=== PATIENT | female | born 1950 | race American Indian/Alaskan Native ===

== ENCOUNTER 2016-07-31 15:52 | Emergency (ER) | payer MEDICARE, OTHER ==
[2016-07-31 16:47] LABS: BUN/Creatinine Ratio 6.15; Calcium 9.4 mg/dL (8.4-10.2); Chloride 104.2 mmol/L (98-107)
[2016-07-31 16:54] LABS: Hematocrit 43.8 % (30.3-42.9); Hemoglobin 14.4 gm/dl (10.1-14.3); Mean Corpuscular HGB Conc 33 % (30-34); Mean Corpuscular Hemoglobin 29 pg (28-32); Mean Corpuscular Volume 88 fl (79-97); Platelet Count 176 K/mm3 (140-440); Red Blood Count 4.97 M/mm3 (3.65-5.03)
[2016-07-31 17:51] LABS: Blastocytes % (Manual) 0 %; Large Platelets Few; Platelet Estimate Cons; RBC Morphology Normal
[2016-07-31 17:52] LABS: Diff Status Complete
--- NOTE | 2016-07-31 18:13 | XRay Report ---
FINAL REPORT PROCEDURE: XR CHEST ROUTINE 2V TECHNIQUE: Two views of the chest are obtained. HISTORY: shortness of breath COMPARISON: No prior studies are available for comparison. FINDINGS: Calcification is seen of the aortic arch. Vague densities are seen in the upper lobes bilaterally, right greater than left. Bilateral pneumonia could possibly cause the appearance but findings may be due to scarring. Heart is normal in size. No pneumothorax or pleural effusion is seen. IMPRESSION: Mild abnormal densities in the upper lungs are of uncertain etiology. Mild pneumonia is not excluded but findings could be from scarring. Chest x-ray followup in a few days time may be useful.
[2016-07-31] MEDS ORDERED: DELTASONE PO ONE (19:03)
--- NOTE | 2016-07-31 19:06 | Emergency Department Report ---
ED Shortness of Breath HPI - General Chief Complaint: Dyspnea/Respdistress Stated Complaint: COUGH W/CHEST PAIN/FEVER/CHILLS/NAUSEA Source: patient Mode of arrival: Ambulatory Limitations: No Limitations - History of Present Illness Initial Comments: Patient is a 65-year-old female with history of hypertension and diet- controlled diabetes as well as lupus presenting today because of 3 days of subjective fevers and chills as well as nonproductive cough. Patient states that she is a former smoker and stopped smoking cigarettes 3-1/2 years ago. She 's had bronchitis in the past. She denies any chest pain other than during coughing. - Related Data Previous Rx's Medication Instructions Recorded Last Taken Type Levofloxacin [Levaquin TAB] 750 mg PO QDAY #5 tablet 07/31/16 Unknown Rx predniSONE [Deltasone] 50 mg PO QDAY #5 tab 07/31/16 Unknown Rx Allergies Allergy/AdvReac Type Severity Reaction Status Date / Time lisinopril Allergy Swelling Verified 07/31/16 16:03 naproxen [From Naprosyn] AdvReac DYSTONIC Verified 07/31/16 16:03 REACTIONS ED Review of Systems ROS: Stated complaint: COUGH W/CHEST PAIN/FEVER/CHILLS/NAUSEA Other details as noted in HPI Comment: All other systems reviewed and negative Constitutional: chills, fever Respiratory: cough, wheezing Cardiovascular: denies: palpitations Gastrointestinal: denies: nausea, vomiting Genitourinary: denies: dysuria Neurological: denies: headache Psychiatric: denies: anxiety ED Past Medical Hx - Past Medical History Hx Hypertension: Yes Hx Diabetes: Yes (DIET CONTROLLED) Hx GERD: Yes Additional medical history: LUPUS. INTERSTITIAL LUNG DISEASE - Surgical History Additional Surgical History: ANAL FISTULA SURGERY X 6. TONSILLECTOMY. TUBAL LIGATION - Social History Smoking Status: Former Smoker Substance Use Type: Marijuana, Prescribed - Medications Home Medications: Home Medications Medication Instructions Recorded Confirmed Last Taken Type Levofloxacin [Levaquin TAB] 750 mg PO QDAY #5 tablet 07/31/16 Unknown Rx predniSONE [Deltasone] 50 mg PO QDAY #5 tab 07/31/16 Unknown Rx ED Physical Exam - General Limitations: No Limitations General appearance: alert - Head Head exam: Present: atraumatic - ENT ENT exam: Present: normal exam - Respiratory Respiratory exam: Present: other (diffuse wheezing bilaterally but good air movement, no respiratory distress). Absent: respiratory distress, accessory muscle use - Cardiovascular Cardiovascular Exam: Present: regular rate, normal rhythm - GI/Abdominal GI/Abdominal exam: Present: soft. Absent: distended, tenderness - Neurological Exam Neurological exam: Present: alert, oriented X3 - Psychiatric Psychiatric exam: Present: normal affect - Skin Skin exam: Present: intact ED Course Vital Signs 07/31/16 07/31/16 07/31/16 16:06 18:05 19:45 Temperature 97.9 F Pulse Rate 65 60 64 Pulse Rate [ Right Lower Lobe] Respiratory 18 18 16 Rate Respiratory Rate [Right Lower Lobe] Blood Pressure 144/94 Blood Pressure 119/60 139/81 [Right] O2 Sat by Pulse 100 99 95 Oximetry 07/31/16 20:14 Temperature Pulse Rate Pulse Rate [ 84 Right Lower Lobe] Respiratory Rate Respiratory 18 Rate [Right Lower Lobe] Blood Pressure Blood Pressure [Right] O2 Sat by Pulse Oximetry ED Medical Decision Making - Lab Data Result diagrams: 07/31/16 16:17 07/31/16 16:17 - Medical Decision Making appears to be a bronchitis vs early pneumonia cxr shows possible mild pneumonia vs scarring per radiology labs unremarkable ekg shows nsr at rate of 64 without st-t changes and normal qtc of 433 duonebs and prednisone ordered Critical care attestation.: If time is entered above; I have spent that time in minutes in the direct care of this critically ill patient, excluding procedure time. ED Disposition Clinical Impression: Pneumonia Qualifiers: Pneumonia type: due to unspecified organism Laterality: unspecified laterality Lung location: unspecified part of lung Qualified Code(s): J18.9 - Pneumonia, unspecified organism Disposition: DISCHARGED TO HOME OR SELFCARE Is pt being admited?: No Condition: Stable Instructions: Bacterial Pneumonia (ED) Additional Instructions: Please follow-up with your primary care doctor in the next 3-5 days. Return to the emergency room if your symptoms significantly worsen or develop new symptoms. Prescriptions: Levofloxacin [Levaquin TAB] 750 mg PO QDAY #5 tablet predniSONE [Deltasone] 50 mg PO QDAY #5 tab Referrals: PRIMARY CARE, [Primary Care Provider] - 3-5 Days
[2016-07-31] MEDS ORDERED: DUONEB 0.5 MG-3 MG/3 ML SOLN IH ONE (19:43)
[2016-07-31 19:46] VITALS: BP 139/81
== END 2016-07-31 21:18 | disposition home or self-care (01) ==
LOC: ED 15:52
DX: R06.2 Wheezing (principal); I10 Essential (primary) hypertension; E11.9 Type 2 diabetes mellitus without complications; K21.9 Gastro-esophageal reflux disease without esophagitis; F12.10 Cannabis abuse, uncomplicated; Z87.891 Personal history of nicotine dependence; Z90.89 Acquired absence of other organs; Z98.51 Tubal ligation status; Z88.6 Allergy status to analgesic agent; Z88.8 Allergy status to other drugs, medicaments and biological substances
CPT/HCPCS: 36415; 71020; 80048; 85007; 85025; 87040; 93005; 93010; 99284; J7512